=== PATIENT | female | born 1930 | race Caucasian/White ===

== ENCOUNTER 2018-07-08 13:43 | Inpatient (IN) | payer MEDICARE, OTHER ==
[~2018-07-08] VITALS: Ht 172.7 cm; Wt 76.8 kg
--- NOTE | 2018-07-08 14:35 | NUR ---
PATIENT ADMITED INTO ROOM 325 VIA [facility] WITH LEFT HIP FX. PATIENT ON BEDREST. FELL AT HOME PREVIOUS NIGHT. PATIENT ADMITED WITH LEFT WRIST IV. HIP FRACTURE PROTOCOL STARTED. SEE ORDERS. HEAD TO TOE ASSESSMENT COMPLETE. MED LIST FROM PHARMACY.
[2018-07-08 14:55] VITALS: BP 180/61; PULSE 101; TEMP 98.4
[2018-07-08] MEDS ORDERED: CRESTOR 10MG10 MG PO (14:59)
[2018-07-08] MEDS ORDERED: AVALIDE 12.5 MG1 TA1 PO (15:00)
--- NOTE | 2018-07-08 15:15 | NUR ---
HOSPITALIST PHYSICIAN AND ORTHO PA AT BEDSIDE.
[2018-07-08 16:07] VITALS: BP 141/44; PULSE 99; TEMP 98.1
[2018-07-08 17:10] LABS: PROTHROMBIN TIME 11.3 SECONDS (9.7-12.8)
[2018-07-08 20:53] VITALS: BP 124/51; PULSE 93; TEMP 98.6
--- NOTE | 2018-07-08 21:30 | NUR ---
Assessment completed. Patient is A&O x 4. VSS, on room air. Reports minimal pain only when moved or repositioned, denies needing any pain medication. Stage 1 pressure ulcer noted to mid-spine, pressure dressing in place. Bruising noted to right hip/thigh. BLE scds/RLE nasrin hose on. Denies any nausea. Tang catheter to DD with yellow clear urine draining. Repositioned with assist of 2. Patient did have a large soft-formed BM this evening. IVF infusing. Patient is NPO after midnight for possible surgery tomorrow. Bed is in a low position with call light in reach.
[2018-07-09] VITALS (17 sets, daily range): BP systolic 108–140; BP diastolic 39–57; PULSE 70–99; TEMP 97.3–98.7
--- NOTE | 2018-07-09 03:03 | NUR ---
Patient has been resting well between nursing disruptions, continues to deny any concrns or needs.
--- NOTE | 2018-07-09 05:40 | NUR ---
Patient has rested well through the night. VSS, applied 1 liter of supplemental O2 via nasal cannula as patient was only 88% on room air. Continues to report minimal pain to left hip at this time, denies needing any pain medication. Tang catheter remains to DD with yellow cloudy urine draining. IVF infusing per orders. Patient is NPO at this time for possible surgery. Denies any concerns or needs. Bed remains in a low position with call light in reach.
[2018-07-09 06:04] LABS: MEAN CELL VOLUME 93 fl (80.0-100.0); MEAN CORPUSCULAR HGB CONC 34 g/dl (33.0-37.0); MEAN PLATELET VOLUME 9.8 fl (7.4-10.4); PLATELET COUNT 185 K/mm3 (130-400); REDCELL DISTRIBUTION WIDTH-CV 13.8 % (11.5-14.5)
[2018-07-09 06:06] LABS: HEMATOCRIT 25.1 % (37.0-47.0); HEMOGLOBIN 8.6 g/dl (12.5-16.0); MEAN CORPUSCULAR HEMOGLOBIN 32 pg (27.0-31.0)
[2018-07-09 06:24] LABS: ALBUMIN 2.9 gm/dL (3.5-5.0); BILIRUBIN,TOTAL 0.5 mg/dL (0.0-1.0); CALCIUM 7.9 mg/dL (8.4-10.2); CREATININE, serum 1.23 mg/dL (0.52-1.25); POTASSIUM 4.1 mmol/L (3.4-5.0); TOTAL PROTEIN 5.4 gm/dL (6.4-8.2)
[2018-07-09 07:17] LABS: BAND 4 % (0-10); HYPOCHROMIA 1+; LYMPHOCYTE 13 % (20.0-51.0); NEUTROPHILS 75 % (42.0-75.2)
[2018-07-09 07:18] LABS: PLATELET ESTIMATE NORMAL (NORMAL)
--- NOTE | 2018-07-09 07:45 | NUR ---
Reported onto Val RN, Pt remains NPO. oral care with swab and water. O2 on 1L per nasal canula. IV in left hand intact, JORGE hose on right leg. SCD's on bilaterally. ICE applied on left hip.
--- NOTE | 2018-07-09 08:08 | NUR ---
Mouth rinsed with swab and water for dry mouth. No complaints at this time.
--- NOTE | 2018-07-09 09:11 | NUR ---
SW attended clinical rounds to disucss discharge planning. Patient lives at home in [place]. Her cousin and DPOA, Cesar, lives close by. Patient's PCP is Dr Rodgers and she obtains prescriptions from [facility]. Patient reports no DME or home health services used. SW inquired if patient has thought about or spoke with the Dr about post acute rehab. Patient reports Dr Ashton reported she would most likley need post acute rehab. Patient reported if she needs rehab her first choice is [facility] and her second choice is [facility]. Patient signed choice form. SW will fax referrals to both facilities.
--- NOTE | 2018-07-09 09:25 | NUR ---
Bed bath with wipes done, gown changed. bruising noted on posterior left thigh. pt has no complaint of pain unless repositioned.
--- NOTE | 2018-07-09 10:52 | NUR ---
Pt blood transfusion started. Tolerating well so far. started at 60 mL/hr for first 15 minutes then upped to 120 mL/hr.
--- NOTE | 2018-07-09 15:28 | NUR ---
PATIENT GOING DOWN TO OR VIA BED.
[2018-07-09 15:35] LABS: HEMOGLOBIN 9.9 g/dl (12.5-16.0)
[2018-07-09 15:36] LABS: HEMATOCRIT 28.3 % (37.0-47.0)
--- NOTE | 2018-07-09 19:30 | NUR ---
Received patient from PACU at 1915. Patient is A&O x 4. Post-op vitals initiated. Reports unable to feel sensation to BLE and unable to move feet at this time. Bulky foam tape dressing to left hip is CDI with an ice pack applied. Pedal pulses intact. RLE nasrin hose/BLE scds on. Pressure dressing maintained to mid-upper spine, abrasion/reddness noted underneath. Repositioned with assist of two in bed. Tang catheter to DD with yellow clear urine draining. Tolerating water at this time with no c/o nausea. IVF initiated on pump per orders. Denies any concerns or needs at thsi time. Bed is in a low position with call light in reach.
--- NOTE | 2018-07-09 21:25 | NUR ---
Patient sitting up in bed eating soup and crackers, denies any nausea. Patient states some sensation to BLE, is able to move feet at this time. Bulky foam tape dressing remains CDI. Continues to deny any concerns or needs.
--- NOTE | 2018-07-10 01:26 | NUR ---
Patient has been resting well between nursing disruptions. Reports feeling BLE now with no numbness or tingling, denies needing any pain medication while laying in bed at this time. Bulky foam tape dressing to left hip remains CDI. Denies any concerns or needs.
[2018-07-10 03:18] VITALS: BP 123/40; PULSE 93; TEMP 98.1
--- NOTE | 2018-07-10 05:05 | NUR ---
Patient has rested intermittently through the night. VSS, currently on 1 liter of supplemental O2 via NC. Denies any pain at this time, states she'll probably need pain medication later when physical therapy works with her as she states she'll probably have pain then. Bulky foam tape dressing to left hip remains CDI with a fresh ice pack applied this morning. Tnag catheter remains to DD with yellow clear urine draining. IVF remain infusing. Denies any concerns or needs, call light within reach.
--- NOTE | 2018-07-10 06:45 | NUR ---
Patient's dressing removed per orders small amount of drainage noted to gauze underneath. 4x4's and tegaderm dressing applied to three incision sites, steri-strisp remained as order stated. Patient tolerated well and denied any pain.
--- NOTE | 2018-07-10 06:58 | NUR ---
REPORT FROM AGATHA CARNEY.
[2018-07-10 07:05] VITALS: BP 142/54; PULSE 98; TEMP 98
--- NOTE | 2018-07-10 07:17 | NUR ---
Report to ANGELIKA Hicks.
--- NOTE | 2018-07-10 07:18 | NUR ---
RESEARCH ASST STUDENT REAL WORKING WITH PATIENT THIS AM.
[2018-07-10 07:21] LABS: BASO % 0.1 % (0.0-2.0); GRAN # 7.9 (1.4-6.5); GRAN % 81.7 % (42.2-75.2); LYMPH # 0.7 (1.2-3.4); LYMPH % 6.8 % (20.0-51.0); MEAN CELL VOLUME 92 fl (80.0-100.0); MEAN CORPUSCULAR HGB CONC 34 g/dl (33.0-37.0); MEAN PLATELET VOLUME 9.9 fl (7.4-10.4); MONO % 10.2 % (1.7-9.3); PLATELET COUNT 166 K/mm3 (130-400); RED BLOOD COUNT 2.64 M/mm3 (4.10-5.30)
[2018-07-10 07:25] LABS: HEMATOCRIT 24.2 % (37.0-47.0); HEMOGLOBIN 8.3 g/dl (12.5-16.0); MEAN CORPUSCULAR HEMOGLOBIN 31 pg (27.0-31.0)
[2018-07-10 07:29] LABS: ALBUMIN 2.7 gm/dL (3.5-5.0); BILIRUBIN,TOTAL 0.9 mg/dL (0.0-1.0); CALCIUM 7.7 mg/dL (8.4-10.2); CREATININE, serum 0.65 mg/dL (0.52-1.25); TOTAL PROTEIN 5.2 gm/dL (6.4-8.2)
--- NOTE | 2018-07-10 08:57 | NUR ---
AGREE WITH ASSESSMENTS CHARTED BY STUDENT THIS SHIFT.
[2018-07-10 11:17] VITALS: BP 132/43; PULSE 81; TEMP 98.1
--- NOTE | 2018-07-10 11:36 | NUR ---
Reported on to Kurt CARNEY. Patient currently resting. VSS. denies any pain. IS/CDB. JORGE hose on right leg. SCD's applied with O2 on. Patient up to chair with PT. Lostant given 7.5 x2 tabs. patient was awake and alerted. Lunch eaten 75% left in chair with call light within reach. Tang emptied at 400 mL. Reported off to Kurt CARNEY.
--- NOTE | 2018-07-10 11:51 | NUR ---
YULIANA attended clinical rounds. Dr and nurse report patient will likley discharge on Sunday. YULIANA spoke with [facility] about referral. Kayla reports they rec'd the referral but the doctor has not accepted patient yet. She also reports the doctor would like a call from our doctor or PA with an update closer to discharge. SW will fax updates once they're completed.
[2018-07-10 15:21] VITALS: BP 157/57; PULSE 77; TEMP 97.3
--- NOTE | 2018-07-10 20:00 | NUR ---
PATIENT IS A&O. VSS. RATES PAIN IN LLE AT 2-3 ON PAIN SCALE. GAVE PRN TYLENOL PER PATIENT WITH EVENING MEDS. LEFT HIP DRESSING IS CD&I WITH AQUACEL. TEDS & SCD'S TO BLE. POSITIVE PEDAL PULSES. SOARES TO DEPENDENT DRAINAGE WITH MOD AMOUNTS OF CLEAR YELLOW URINE. NO C/O N/V. IV TO INT. HEAD TO TOE WNL. PATIENT GOING TO BED. CALL LIGHT IN REACH.
[2018-07-10 20:02] VITALS: BP 138/49; PULSE 77; TEMP 97.8
[2018-07-10 23:46] VITALS: BP 121/44; PULSE 75; TEMP 98.4
[2018-07-11 04:30] VITALS: BP 129/36; PULSE 84; TEMP 98.8
[2018-07-12 08:00] VITALS: BP 105/82; BP 122/53; PULSE 92; TEMP 98.7
[2018-07-12 12:00] VITALS: BP 131/45; PULSE 91; TEMP 97.4
[2018-07-12] MEDS ORDERED: SENOKOT S 50 MG1 TAB PO (12:09)
[2018-07-12] MEDS ORDERED: XARELTO10 MG PO (12:09)
[2018-07-12] MEDS ORDERED: TYLENOL 500MG500 MG PO (12:09)
[2018-07-12] MEDS ORDERED: DULCOLAX S10 MG/SUPP RC (12:10)
[2018-07-12] MEDS ORDERED: NORCO 325 MG-7.1 TAB PO (12:11)
--- NOTE | 2018-07-12 12:48 | NUR ---
07/11 - SW attended clinical rounds. Patient is planning to discharge tomorrow (07/12) to [facility].
--- NOTE | 2018-07-12 13:00 | NUR ---
remains up in recliner
--- NOTE | 2018-07-12 13:52 | NUR ---
YULIANA attended clinical rounds. Patient will be discharging to [facility] today. YULIANA presented IM to patient. She signed but did not request a copy. YULIANA faxed discharge orders to [facility].
--- NOTE | 2018-07-12 14:00 | NUR ---
resting in bed, dressings to left hip remains CD&I from this am
[2018-07-12 15:03] VITALS: BP 131/45; PULSE 91; TEMP 97.4
[2018-07-12 15:05] LABS: MEAN CELL VOLUME 93 fl (80.0-100.0); MEAN CORPUSCULAR HGB CONC 34 g/dl (33.0-37.0); MEAN PLATELET VOLUME 9.6 fl (7.4-10.4); PLATELET COUNT 189 K/mm3 (130-400); RED BLOOD COUNT 2.53 M/mm3 (4.10-5.30); REDCELL DISTRIBUTION WIDTH-CV 14.8 % (11.5-14.5)
[2018-07-12 15:06] LABS: HEMATOCRIT 23.6 % (37.0-47.0); HEMOGLOBIN 8.1 g/dl (12.5-16.0); MEAN CORPUSCULAR HEMOGLOBIN 32 pg (27.0-31.0)
[2018-07-12 15:29] LABS: CALCIUM 7.7 mg/dL (8.4-10.2); CREATININE, serum 0.7 mg/dL (0.52-1.25); POTASSIUM 3.5 mmol/L (3.4-5.0)
--- NOTE | 2018-07-12 16:00 | NUR ---
ready for discharge, medicated with hydrocodone 7.5mg 2 tabs
[2018-07-12 16:07] LABS: HEMATOCRIT 24.5 % (37.0-47.0); HEMOGLOBIN 8.2 g/dl (12.5-16.0); MEAN CELL VOLUME 94 fl (80.0-100.0); MEAN CORPUSCULAR HEMOGLOBIN 31 pg (27.0-31.0); MEAN CORPUSCULAR HGB CONC 34 g/dl (33.0-37.0); MEAN PLATELET VOLUME 9.3 fl (7.4-10.4); PLATELET COUNT 240 K/mm3 (130-400); RED BLOOD COUNT 2.62 M/mm3 (4.10-5.30); REDCELL DISTRIBUTION WIDTH-CV 14.6 % (11.5-14.5)
[2018-07-12 16:08] LABS: BAND 1 % (0-10); EOSINOPHIL 4 % (0-4); LYMPHOCYTE 23 % (20.0-51.0); NEUTROPHILS 57 % (42.0-75.2)
[2018-07-12 16:09] LABS: METAMYELOCYTE 1 % (0-0); NUCLEATED RED BLOOD CELL 1 (0-6); PLATELET ESTIMATE NORMAL (NORMAL)
--- NOTE | 2018-07-12 16:15 | NUR ---
discharged per WC
--- NOTE | 2018-07-12 16:15 | NUR ---
discharged per WC
--- NOTE | 2018-07-12 16:37 | NUR ---
report called to Abril at [facility]
[2018-07-12 16:56] LABS: ALBUMIN 2.5 gm/dL (3.5-5.0); BILIRUBIN,TOTAL 0.8 mg/dL (0.0-1.0); CALCIUM 7.7 mg/dL (8.4-10.2); CREATININE, serum 0.6 mg/dL (0.52-1.25); POTASSIUM 3.6 mmol/L (3.4-5.0); TOTAL PROTEIN 4.9 gm/dL (6.4-8.2)
== END 2018-07-12 16:15 | disposition swing bed (61) | DRG 481 ==
LOC: SURG 13:43
PROVIDERS: Nurse Practitioner Family; Orthopaedic Surgery; Physician Assistant; ADMIT Hospitalist
PROC: 0QS736Z Reposition Left Upper Femur with Intramedullary Internal Fixation Device, Percutaneous Approach (ICD-10-PCS; principal; 2018-07-09 17:00)
DX: S72.22XA Displaced subtrochanteric fracture of left femur, initial encounter for closed fracture (principal); E87.2 Acidosis; N17.9 Acute kidney failure, unspecified; I50.32 Chronic diastolic (congestive) heart failure; D64.9 Anemia, unspecified; W00.0XXA Fall on same level due to ice and snow, initial encounter; Y92.008 Other place in unspecified non-institutional (private) residence as the place of occurrence of the external cause; L89.101 Pressure ulcer of unspecified part of back, stage 1; R73.9 Hyperglycemia, unspecified; I34.0 Nonrheumatic mitral (valve) insufficiency; I35.0 Nonrheumatic aortic (valve) stenosis; Z88.0 Allergy status to penicillin
CPT/HCPCS: 99232-AI; 99239; A9284; C1713; J0690; J1100; J2250; J2405; J2704; J2765; J2795; J3010; J7030; J7120; P9016

== ENCOUNTER 2018-08-23 08:45 | Inpatient (IN) | payer MEDICARE, OTHER ==
[~2018-08-23] VITALS: Ht 172.7 cm; Wt 76.7 kg
[~2018-08-23 08:45] MED LIST: AVALIDE 12.5 MG1 TA1 PO; CRESTOR 10MG10 MG PO; DULCOLAX S10 MG/SUPP RC; NORCO 325 MG-7.1 TAB PO; SENOKOT S 50 MG1 TAB PO; TYLENOL 500MG500 MG PO; XARELTO10 MG PO
[2018-08-26] VITALS (10 sets, daily range): BP systolic 95–162; BP diastolic 50–65; PULSE 60–92; TEMP 97.3–98.6
[2018-08-26 09:00] LABS: HEMATOCRIT 38.9 % (37.0-47.0); HEMOGLOBIN 12.5 g/dl (12.5-16.0); MEAN CELL VOLUME 93 fl (80.0-100.0); MEAN CORPUSCULAR HEMOGLOBIN 30 pg (27.0-31.0); MEAN CORPUSCULAR HGB CONC 32 g/dl (33.0-37.0); MEAN PLATELET VOLUME 8.6 fl (7.4-10.4); PLATELET COUNT 225 K/mm3 (130-400); RED BLOOD COUNT 4.18 M/mm3 (4.10-5.30); REDCELL DISTRIBUTION WIDTH-CV 13.5 % (11.5-14.5)
[2018-08-26 09:07] LABS: CALCIUM 9.2 mg/dL (8.4-10.2); CREATININE, serum 0.53 (0.52-1.25); POTASSIUM 3.8 mmol/L (3.4-5.0)
--- NOTE | 2018-08-26 09:41 | NUR ---
Initial visit; Patient's Casino Floor Runner was visiting when Resource Director introduced herself also stating she knew patient was in good hands. Resource Director wanted to let patient know that [facility] is available if her Casino Floor Runner isn't available. Casino Floor Runner thanked Resource Director for looking in on Maddy also.
[2018-08-26 17:53] LABS: BASO % 0.2 % (0.0-2.0); EOS % 0.2 % (0-4.0); GRAN # 7.5 (1.4-6.5); GRAN % 84.9 % (42.2-75.2); HEMOGLOBIN 11.3 g/dl (12.5-16.0); LYMPH # 0.7 (1.2-3.4); LYMPH % 7.5 % (20.0-51.0); MEAN CELL VOLUME 95 fl (80.0-100.0); MEAN CORPUSCULAR HEMOGLOBIN 30 pg (27.0-31.0); MEAN CORPUSCULAR HGB CONC 32 g/dl (33.0-37.0); MEAN PLATELET VOLUME 8.7 fl (7.4-10.4); MONO # 0.6 (0.1-0.6); PLATELET COUNT 234 K/mm3 (130-400); RED BLOOD COUNT 3.75 M/mm3 (4.10-5.30); REDCELL DISTRIBUTION WIDTH-CV 13.4 % (11.5-14.5)
--- NOTE | 2018-08-26 17:57 | NUR ---
PT TO ROOM 330 PER BED WITH REPORT FROM LYLA RN @[id number]. PT IS DROWSEY BUT AROUSES EASILY. LUNGS COARSE, HOSPITALIST CONSULTED FOR POSSIBLE ASPIRATION POST PROCEEDURE. DR DUPREE IN TO SEE PT. DRESSING TO LEFT HIP CDI WITH FOAM TAPE OVER GAUZE. PT DENIES PAIN. IV TO PUMP, SCDS TEDS BILATERAL.
[2018-08-26 17:58] LABS: HEMATOCRIT 35.5 % (37.0-47.0)
[2018-08-26 18:05] LABS: ALBUMIN 3.1 gm/dL (3.5-5.0); BILIRUBIN UNCONJUGATED 0.4 mg/dL (0.0-1.1); BILIRUBIN,DIRECT 0.1 mg/dL (0.0-0.4); BILIRUBIN,TOTAL 0.5 mg/dL (0.0-1.0); CALCIUM 8.7 mg/dL (8.4-10.2); CREATININE, serum 0.62 (0.52-1.25); POTASSIUM 3.9 mmol/L (3.4-5.0)
--- NOTE | 2018-08-26 19:05 | NUR ---
REPORT TO BARI CARNEY.
--- NOTE | 2018-08-26 19:30 | NUR ---
Report received from Kurt CARNEY. Patient rests quietly in bed. Respirations with ease.
--- NOTE | 2018-08-26 21:15 | NUR ---
meds along with norco reviewed and given. New ice pack to left hip. Patient alert and oriented x 4. See assessment.
--- NOTE | 2018-08-26 23:00 | NUR ---
Patient up mod 1 assist to stand and to bathroom with walker. Voids and walks back to bed. Assisted with legs into bed and LLE elevated on pillow. Roxycodone 5mg given for increased pain Left hip with movement.
--- NOTE | 2018-08-27 02:00 | NUR ---
Patient rests with eyes closed. Respirations with ease.
[2018-08-27 03:52] VITALS: BP 152/46; PULSE 94; TEMP 98.6
--- NOTE | 2018-08-27 05:40 | NUR ---
PATIENT AWAKE IN BED. REPORTS PAIN LEVEL 5-6/10 LEFT HIP BUT DENIES NEED FOR ADDITIONAL PAIN MED AT THIS TIME. LAB INTO DRAW BLOOD. ENCOURAGED IS Q 1 HOUR WHILE AWAKE. VOICE IS HOARSE THIS AM.
[2018-08-27 08:17] VITALS: BP 119/40; PULSE 91; TEMP 97.8
[2018-08-27 08:34] LABS: BASO % 0.3 % (0.0-2.0); EOS % 0.1 % (0-4.0); GRAN # 5.3 (1.4-6.5); GRAN % 75.5 % (42.2-75.2); LYMPH # 0.9 (1.2-3.4); LYMPH % 12.8 % (20.0-51.0); MEAN CELL VOLUME 93 fl (80.0-100.0); MEAN CORPUSCULAR HGB CONC 33 g/dl (33.0-37.0); MEAN PLATELET VOLUME 9.5 fl (7.4-10.4); MONO # 0.8 (0.1-0.6); MONO % 11.2 % (1.7-9.3); PLATELET COUNT 196 K/mm3 (130-400); RED BLOOD COUNT 3.04 M/mm3 (4.10-5.30); REDCELL DISTRIBUTION WIDTH-CV 13.6 % (11.5-14.5)
[2018-08-27 08:36] LABS: HEMATOCRIT 28.3 % (37.0-47.0); HEMOGLOBIN 9.3 g/dl (12.5-16.0); MEAN CORPUSCULAR HEMOGLOBIN 31 pg (27.0-31.0)
--- NOTE | 2018-08-27 09:47 | NUR ---
SW attended clinical rounds. Patient will discharge back to [facility] today and receive long term, PT and OT. SW attempted to contact patient's sister, Jacqueline, to inform her of discharge and to review IM. SW left a message.
--- NOTE | 2018-08-27 09:49 | NUR ---
SW and SW student met with patient to disucss discharge planning. Patient lives at home in [place]. Her cousin and DPOA, Cesar, lives close by. Patient's PCP is Dr Rodgers and she obtains prescriptions from [facility]. Patient reports she uses a walker but not other DME is reported and no home health services are used. SW inquired if patient has thought about post acute rehab. Patient reports she would like to go to [facility] because she went there for rehab after her previous andmission. Patient reports her second choice is [facility]. Patient signed choice form. SW will fax referrals to both facilities.
[2018-08-27 11:51] VITALS: BP 136/49; PULSE 86; TEMP 98.3
--- NOTE | 2018-08-27 13:40 | NUR ---
PATIENT IS VERY DROWSY AND DISSY AFTER PAIN MEDS HOWEVER, STILL C/O 10/10 PAIN AT THERAPY. AT REST PATIENT SLEEPS. WILL MONITOR.
[2018-08-27 16:05] VITALS: BP 136/47; PULSE 92; TEMP 98.3
--- NOTE | 2018-08-27 19:10 | NUR ---
Report received from Val CARNEY. Patient sits up in recliner alert and oriented x 4. [place] given. Denies further needs.
[2018-08-27 21:06] VITALS: BP 143/75; PULSE 92; TEMP 99.1
--- NOTE | 2018-08-27 21:30 | NUR ---
Patient walked to the bathroom tonight and voided. Rests back in bed. Ricardo hose removed and reapplied. SCD's on. HS meds along with norco and antibiotic reviewed and given with crackers. INT LF flushes with ease.
[2018-08-28] VITALS (7 sets, daily range): BP systolic 133–156; BP diastolic 40–58; PULSE 87–98; TEMP 97.8–99.4
--- NOTE | 2018-08-28 01:33 | NUR ---
Patient rests with eyes closed. Respirations with ease.
--- NOTE | 2018-08-28 04:00 | NUR ---
Patient rests quietly in bed. Denies need for pain med. Denies pain at this time. Has been resting with eyes closed on rounds.
--- NOTE | 2018-08-28 05:04 | NUR ---
Patient resting soundly with eyes closed. Respirations with ease.
--- NOTE | 2018-08-28 06:00 | NUR ---
Dr. Win into see patient. States patient stay another night and have SW work on [facility]. Patient denies pain but premedicated prior to activity with norco 1 tab. Takes crackers prior to med.
--- NOTE | 2018-08-28 06:50 | NUR ---
awake resting in bed, bedside shift report received from Araseli RN
[2018-08-28 07:24] LABS: HEMATOCRIT 27.1 % (37.0-47.0); HEMOGLOBIN 8.9 g/dl (12.5-16.0)
--- NOTE | 2018-08-28 08:15 | NUR ---
sitting up in chair, states she was a little dizzy when up to bathroom earlier but thinks it is just because she is hungry, breakfast has been ordered
--- NOTE | 2018-08-28 09:07 | NUR ---
ambulated out to [place] with physical therapy for group exercises
--- NOTE | 2018-08-28 09:15 | NUR ---
Pt had 2 loose bowel movements @07:05 and 08:10, will hold off on eating breakfast prunes, primary RN informed.
--- NOTE | 2018-08-28 11:27 | NUR ---
remains up in recliner, is ordering lunch now
--- NOTE | 2018-08-28 13:09 | NUR ---
ambulated out to [place] with physical therapy for group exercises
--- NOTE | 2018-08-28 14:03 | NUR ---
ambulated back to room after therapy and into bed to rest
--- NOTE | 2018-08-28 14:12 | NUR ---
YULIANA spoke with Kayla from [facility]. Patient has been accepted and they will be able to admit her tomorrow. Kayla requested Dr Win contact Dr Rodgers for the doc to doc call. YULIANA contacted Dr Win and informed him about the request for the doc to doc call. YULIANA will inform patient of acceptance.
--- NOTE | 2018-08-28 15:00 | NUR ---
appears to be sleeping, in bed with lights off, eyes closed, resp quiet and easy
--- NOTE | 2018-08-28 15:54 | NUR ---
resting in bed with eyes closed
--- NOTE | 2018-08-28 16:45 | NUR ---
c/o pain after coughing, medicated with hydrocodone 7.5mg 2 tabs
--- NOTE | 2018-08-28 18:01 | NUR ---
in bed and apears to be sleeping now
--- NOTE | 2018-08-28 18:54 | NUR ---
bedside shift report given to ANGELIKA Marx
--- NOTE | 2018-08-28 21:45 | NUR ---
Patient awakened for HS med. Denies pain and declines pain med at this time. Alert. States had loose incontinent stool today and declines senokot. SCD's and ice pack on.
--- NOTE | 2018-08-29 00:15 | NUR ---
Patient has been resting with eyes closed. Respirations with ease.
--- NOTE | 2018-08-29 03:16 | NUR ---
Patient has been resting with eyes closed. Respirations with ease.
[2018-08-29 04:50] VITALS: BP 141/59; PULSE 86; TEMP 98.2
[2018-08-29 08:00] VITALS: BP 138/46; PULSE 93; TEMP 97.6
[2018-08-29] MEDS ORDERED: AMOXICILLIN 8751 TAB PO (10:58)
[2018-08-29] MEDS ORDERED: ROXICODONE 55 MG/TAB PO (10:59)
[2018-08-29] MEDS ORDERED: XARELTO10 MG PO (10:59)
[2018-08-29 13:11] VITALS: BP 147/47; PULSE 90; TEMP 98.2
--- NOTE | 2018-08-29 13:46 | NUR ---
YULIANA student met with patient to discuss IM Form. YULIANA student presented and explained form. Patient verbalized understanding and signed. YULIANA student provided a copy. YULIANA to fax discharge orders to [facility]. YULIANA student contact patient's DPOA and Cousin (Cesar) to notify that we are ready for him to transport patient. Cesar will picking supervisor patient at [facility]. YULIANA student notified patient's nurse (Val). Patient is to discharge to [facility] for a skilled stay today (08/29). Transportation via private car.
[2018-08-29 14:21] VITALS: BP 147/47; PULSE 90; TEMP 98.2
--- NOTE | 2018-08-29 16:40 | NUR ---
PATIENT DISCHARGING TO [facility] VIA WHEELCHAIR WITH COUSIN. GAVE PATIENT TRANSFER INFO PACKET. CALLED REPORT. NO IV SITE. PATIENT DISCHARGED.
== END 2018-08-29 16:40 | disposition swing bed (61) | DRG 470 ==
LOC: JCC 08-26 07:15
PROVIDERS: Hospitalist; ADMIT Orthopaedic Surgery
PROC: 0QP704Z Removal of Internal Fixation Device from Left Upper Femur, Open Approach (ICD-10-PCS; 2018-08-26)
PROC: 0SRS0J9 Replacement of Left Hip Joint, Femoral Surface with Synthetic Substitute, Cemented, Open Approach (ICD-10-PCS; principal; 2018-08-26 10:30)
DX: T84.125A Displacement of internal fixation device of left femur, initial encounter (principal); S72.142D Displaced intertrochanteric fracture of left femur, subsequent encounter for closed fracture with routine healing; W18.30XD Fall on same level, unspecified, subsequent encounter; I10 Essential (primary) hypertension; E78.5 Hyperlipidemia, unspecified; E55.9 Vitamin D deficiency, unspecified; R11.10 Vomiting, unspecified
CPT/HCPCS: 99222; 99231-AI; A9284; C1713; C1776; J0171; J0690; J2250; J2704; J3010; J7042; J7120